=== PATIENT | male | born 1940 | race Caucasian/White ===

== ENCOUNTER 2017-07-07 12:51 | Outpatient (CLI) | payer MEDICARE ==
--- NOTE | 2017-07-07 15:24 | ULT ---
BILATERAL RENAL ULTRASOUND: Date: 07/07/17 HISTORY: Renal cyst. FINDINGS: Comparison made with ultrasound of 11/04/[address] scan of 12/29/15. The right kidney measures 11.1 cm in length and the left kidney measures 11.5 cm in length. There is 3.0 cm cyst in the inferior pole of the right kidney. There is an 8.0 mm exophytic cyst arising fro m the left kidney. A solid-appearing 2.0 cm mass is noted in the left renal cortex, likely correspon ding to the finding on the CT scan of 12/29/15. The urinary bladder is unremarkable. IMPRESSION: 1. Bilateral renal cysts. 2. Solid mass in the left kidney. This should be evaluated with CT scan (with and without IV contra st). POS: [facility]
== END 2017-07-07 12:52 | disposition home or self-care (01) ==
LOC: SCSULT 12:51
PROVIDERS: ATTEND Urology
DX: N28.89 Other specified disorders of kidney and ureter (principal); N28.1 Cyst of kidney, acquired
CPT/HCPCS: 76770

== ENCOUNTER 2017-11-08 08:20 | Outpatient (CLI) | payer MEDICARE ==
[2017-11-08] MEDS ORDERED: Iopamidol 370 76% 100 ML VIAL ONE (09:00)
--- NOTE | 2017-11-08 10:51 | CT ---
CT ABDOMEN AND PELVIS WITH AND WITHOUT IV CONTRAST: HISTORY: Gross hematuria. FINDINGS: Comparison is made with the exam of 12/29/15. Lung bases are unremarkable. The patient is post cholecystectomy. The liver, spleen, pancreas, and adrenal glands are normal. No calculi are seen in the kidneys, ureters, or the urinary bladder. No hydroureteral nephrosis seen . The prostate is enlarged. There is thickening of the wall of the urinary bladder. Post-contrast images demonstrate bilateral renal cysts. 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 The heterogenicity enhancing mass in the posterior aspect of the mid portion of the left kidney is unchanged measuring 2.5 x 1.8 x 2 cm. The small bowel loops are not abnormally dilated. Small duodenal diverticulum is again seen. There is a small hiatal hernia. A normal-appearing appendix is present. There are vascular calcifications without evidence of aneurysmal dilatation of the abdominal aorta. No free air, free fluid, or lymph adenopathy is seen in the abdomen or pelvis. Degenerative changes are present in the spine. IMPRESSION: 1. Stable renal masses. 2. Heterogeneously enhancing mass in the left kidney is stable. The possibility of renal cell carci noma cannot be excluded. 3. Prostatic enlargement with urinary bladder wall thickening. POS: [facility]
== END 2017-11-08 08:21 | disposition home or self-care (01) ==
LOC: SCSCT 08:20
PROVIDERS: ATTEND Urology
DX: R31.0 Gross hematuria (principal); N28.89 Other specified disorders of kidney and ureter; N40.0 Benign prostatic hyperplasia without lower urinary tract symptoms; N32.89 Other specified disorders of bladder
CPT/HCPCS: 74178

== ENCOUNTER 2018-07-30 10:34 | Outpatient (CLI) | payer MEDICARE ==
--- NOTE | 2018-07-30 13:00 | ULT ---
ULTRASOUND BILATERAL RENAL STANDARD: HISTORY: Mass. COMPARISON: CT abdomen and pelvis 11/08/2017. FINDINGS: The right kidney measures 10.9 x 5.9 x 6 cm. The left kidney measures 12 x 5.8 x 6.4 cm. The prosta te is enlarged. The urinary bladder is unremarkable. There is a cyst of the inferior pole right kidney. There is what appears to be intrapolar very homog eneous left-sided renal mass which was not measured by the technologist. The technologist measured i n the superior pole 4.3 cm mass. IMPRESSION: Abnormal left renal mass. An MRI with and without contrast renal protocol recommended. POS: [facility]
== END 2018-07-30 10:35 | disposition home or self-care (01) ==
LOC: SCSULT 10:34
PROVIDERS: ATTEND Urology
DX: N28.89 Other specified disorders of kidney and ureter (principal)
CPT/HCPCS: 76770

== ENCOUNTER 2021-05-23 22:55 | Observation (INO) | payer MEDICARE, OTHER ==
[2021-05-24 02:00] VITALS: BMI 24.0
[2021-05-24] MEDS ORDERED: Morphine 2 MG/ML VIAL SLOW IVP PRN (02:12)
[2021-05-24] MEDS ORDERED: Cyclobenzaprine 10 MG TAB PO PRN (02:12)
[2021-05-24] MEDS ORDERED: Dextrose 5% in Water 1,000 ML IV PRN (02:12)
[2021-05-24] MEDS ORDERED: Dextrose 50% Abboject 50 ML SYRINGE SLOW IVP PRN (02:12)
[2021-05-24] MEDS ORDERED: Ondansetron ODT 4 MG TAB PO PRN (02:12)
[2021-05-24] MEDS ORDERED: hydrALAZINE 20 MG/ML VIAL SLOW IVP PRN (02:12)
[2021-05-24] MEDS ORDERED: Ondansetron PF 4 MG/2 ML Vial IVP PRN (02:12)
[2021-05-24] MEDS ORDERED: HumaLOG 300 UNITS/3 ML VIAL SC PRN ×2 (02:12)
[2021-05-24] MEDS ORDERED: traMADol HCl 50 MG TAB PO PRN ×2 (02:12)
[2021-05-24] MEDS: Sodium Chloride 0.9% 1,000 ML IV SCH ×4 (02:36→21:48)
[2021-05-24] MEDS: Acetaminophen 500 MG TAB PO SCH ×3 (04:39→18:19)
[2021-05-24 05:53] LABS: #Lymphocytes 1.4 thou/uL (1.20-3.40); #Monocytes 0.6 thou/uL (0.11-0.59); #Neutrophils 7.3 thou/uL (1.40-6.50); %Eosinophils 0.3 % (0.0-10.0); %Monocytes 6.1 % (0.0-10.0); %Neutrophils 78.6 % (42.0-75.0); Hemoglobin 12.2 g/dL (14.0-18.0); Mean Corpuscular HGB CONC 33.2 g/dL (32.0-36.0); Mean Corpuscular Volume 96.4 fL (78.0-98.0); Mean Platelet Volume 8.1 fL (7.4-10.4); Platelet Count 136 thou/uL (130-400); RBC Distribution Width 13.3 % (11.5-14.5); Red Blood Cell (RBC) Count 3.82 mill/uL (4.70-6.10); White Blood Cell (WBC) Count 9.3 thou/uL (4.8-10.8)
[2021-05-24 06:19] LABS: Anion Gap 18 mmol/L (10-20); BUN (Urea Nitrogen) 26 mg/dL (8.4-25.7); Calc. Creatinine Clearance 45 mL/min (70-130); Calcium 8.9 mg/dL (7.8-10.44); Carbon Dioxide 22 mmol/L (23-31); Chloride 103 mmol/L (98-107); Glucose 127 mg/dL (83-110); Potassium 5.7 mmol/L (3.5-5.1); Sodium 137 mmol/L (136-145)
[2021-05-24] MEDS ORDERED: Gabapentin 100 MG CAP PO SCH (09:00)
[2021-05-24] MEDS ORDERED: Lisinopril 10 MG TAB PO SCH (09:00)
[2021-05-24] MEDS: Dutasteride 0.5 MG CAP PO SCH (10:10)
[2021-05-24] MEDS: metFORMIN 500 MG TAB PO SCH ×2 (10:12→18:18)
[2021-05-24] MEDS: Empagliflozin 25 MG TAB PO SCH (10:12)
[2021-05-24] MEDS: Famotidine 20 MG TAB PO SCH (10:12)
[2021-05-24] MEDS: Cholecalciferol 1,000 UNITS (25 MCG) TAB PO SCH (10:12)
[2021-05-24] MEDS: Tamsulosin HCl 0.4 MG CAP PO SCH (10:17)
[2021-05-24 12:23] LABS: Anion Gap 17 mmol/L (10-20); BUN (Urea Nitrogen) 28 mg/dL (8.4-25.7); Calc. Creatinine Clearance 42 mL/min (70-130); Calcium 8.5 mg/dL (7.8-10.44); Carbon Dioxide 20 mmol/L (23-31); Chloride 103 mmol/L (98-107); Glucose 216 mg/dL (83-110); Magnesium 2.2 mg/dL (1.6-2.6); Phosphorus 4.9 mg/dL (2.3-4.7); Potassium 5.5 mmol/L (3.5-5.1); Sodium 134 mmol/L (136-145)
[2021-05-24] MEDS: traMADol HCl 50 MG TAB PO SCH ×2 (12:45→21:51)
[2021-05-24] MEDS ORDERED: Dextrose 50% Abboject 50 ML SYRINGE SLOW IVP SCH (12:45)
[2021-05-24] MEDS ORDERED: Insulin Regular 300 UNITS/3 ML VIAL IVP SCH (12:45)
[2021-05-24 17:34] LABS: SARS-CoV-2 PCR by NAA Not Detected (NotDetected)
[2021-05-24 18:12] LABS: Anion Gap 10 mmol/L (10-20); BUN (Urea Nitrogen) 29 mg/dL (8.4-25.7); Calc. Creatinine Clearance 43 mL/min (70-130); Calcium 8.1 mg/dL (7.8-10.44); Carbon Dioxide 24 mmol/L (23-31); Chloride 105 mmol/L (98-107); Glucose 137 mg/dL (83-110); Potassium 4.8 mmol/L (3.5-5.1); Sodium 134 mmol/L (136-145)
[2021-05-24] MEDS ORDERED: Atorvastatin Calcium 20 MG TAB PO SCH (21:00)
[2021-05-24] MEDS ORDERED: Melatonin 3 MG TAB PO SCH (21:00)
[2021-05-24] MEDS ORDERED: Sodium Chloride 0.9% 1,000 ML IV SCH (21:44)
[2021-05-24] MEDS: Pregabalin 50 MG CAP PO SCH (21:52)
[2021-05-25] MEDS: Acetaminophen 500 MG TAB PO SCH ×3 (00:22→12:13)
[2021-05-25] MEDS: traMADol HCl 50 MG TAB PO SCH (05:48)
[2021-05-25 06:54] LABS: Anion Gap 11 mmol/L (10-20); BUN (Urea Nitrogen) 28 mg/dL (8.4-25.7); CK (CPK) 285 U/L (30-200); Calc. Creatinine Clearance 46 mL/min (70-130); Calcium 8.2 mg/dL (7.8-10.44); Carbon Dioxide 22 mmol/L (23-31); Chloride 106 mmol/L (98-107); Glucose 122 mg/dL (83-110); Magnesium 2.1 mg/dL (1.6-2.6); Phosphorus 3.4 mg/dL (2.3-4.7); Potassium 4.3 mmol/L (3.5-5.1); Sodium 135 mmol/L (136-145)
[2021-05-25 09:15] LABS: #Eosinphils 0.3 thou/uL (0.0-0.7); #Lymphocytes 2.1 thou/uL (1.20-3.40); #Monocytes 1.1 thou/uL (0.11-0.59); #Neutrophils 3.9 thou/uL (1.40-6.50); %Basophils 0.2 % (0.0-1.0); %Eosinophils 3.6 % (0.0-10.0); %Lymphocytes 28.4 % (21.0-51.0); %Monocytes 14.4 % (0.0-10.0); %Neutrophils 53.4 % (42.0-75.0); Hemoglobin 11.2 g/dL (14.0-18.0); Mean Corpuscular HGB CONC 32.7 g/dL (32.0-36.0); Mean Corpuscular Hemoglobin 31.8 pg (27.0-31.0); Mean Corpuscular Volume 97.1 fL (78.0-98.0); Mean Platelet Volume 7.5 fL (7.4-10.4); Platelet Count 127 thou/uL (130-400); RBC Distribution Width 13.8 % (11.5-14.5); Red Blood Cell (RBC) Count 3.52 mill/uL (4.70-6.10); White Blood Cell (WBC) Count 7.3 thou/uL (4.8-10.8)
[2021-05-25] MEDS: Empagliflozin 25 MG TAB PO SCH (09:32)
[2021-05-25] MEDS: Cholecalciferol 1,000 UNITS (25 MCG) TAB PO SCH (09:33)
[2021-05-25] MEDS: Famotidine 20 MG TAB PO SCH (09:33)
[2021-05-25] MEDS: Tamsulosin HCl 0.4 MG CAP PO SCH (09:33)
[2021-05-25] MEDS: metFORMIN 500 MG TAB PO SCH (09:33)
[2021-05-25] MEDS: Pregabalin 50 MG CAP PO SCH (09:34)
[2021-05-25] MEDS: Dutasteride 0.5 MG CAP PO SCH (09:40)
[2021-05-25 11:32] VITALS: TEMP 97.6
[2021-05-25] MEDS ORDERED: Bisacodyl 10 MG SUPP PR SCH (12:00)
[2021-05-25 17:31] VITALS: BP 130/77
== END 2021-05-25 18:20 | disposition home health service (06) ==
LOC: SURG A 22:55
PROVIDERS: ADMIT Specialist; ATTEND Specialist
DX: S12.090A Other displaced fracture of first cervical vertebra, initial encounter for closed fracture (principal); S22.31XA Fracture of one rib, right side, initial encounter for closed fracture; S43.101A Unspecified dislocation of right acromioclavicular joint, initial encounter; I13.10 Hypertensive heart and chronic kidney disease without heart failure, with stage 1 through stage 4 chronic kidney disease, or unspecified chronic kidney disease; E11.22 Type 2 diabetes mellitus with diabetic chronic kidney disease; N18.9 Chronic kidney disease, unspecified; N17.9 Acute kidney failure, unspecified; N28.89 Other specified disorders of kidney and ureter; G89.11 Acute pain due to trauma; S01.01XA Laceration without foreign body of scalp, initial encounter; E78.00 Pure hypercholesterolemia, unspecified; N40.0 Benign prostatic hyperplasia without lower urinary tract symptoms; Z87.891 Personal history of nicotine dependence; Z79.01 Long term (current) use of anticoagulants; Z79.84 Long term (current) use of oral hypoglycemic drugs; Z79.899 Other long term (current) drug therapy; Z95.1 Presence of aortocoronary bypass graft; Z95.5 Presence of coronary angioplasty implant and graft; Z95.810 Presence of automatic (implantable) cardiac defibrillator; Z20.822 Contact with and (suspected) exposure to COVID-19; V84.0XXA Driver of special agricultural vehicle injured in traffic accident, initial encounter; Y92.410 Unspecified street and highway as the place of occurrence of the external cause
CPT/HCPCS: 71045; 73030; 80048 ×3; 82550 ×2; 82962 ×2; 83735 ×2; 84100 ×2; 85025 ×2; 97116; 97139 ×4; U0003; U0005; 36415; 36416; 96374; G0378; J1815; J7050

== ENCOUNTER 2021-06-08 09:44 | Outpatient (CLI) | payer MEDICARE | END 2021-06-08 09:45 | disposition home or self-care (01) | LOC: TBSIIMAG 09:44 | PROVIDERS: ATTEND Neurological Surgery | DX: S12.000D Unspecified displaced fracture of first cervical vertebra, subsequent encounter for fracture with routine healing (principal); M47.812 Spondylosis without myelopathy or radiculopathy, cervical region | CPT/HCPCS: 72040 ==

== ENCOUNTER 2022-09-01 06:46 | Emergency (ER) | payer MEDICARE ==
[2022-09-01] MEDS ORDERED: Ibuprofen 200 MG TAB ONE (07:17)
[2022-09-01] MEDS ORDERED: Cyclobenzaprine 10 MG TAB ONE (07:17)
== END 2022-09-01 08:06 | disposition home or self-care (01) ==
LOC: ERS 06:46
DX: S29.012A Strain of muscle and tendon of back wall of thorax, initial encounter (principal); J18.9 Pneumonia, unspecified organism; I10 Essential (primary) hypertension; E78.00 Pure hypercholesterolemia, unspecified; E11.9 Type 2 diabetes mellitus without complications; Z79.84 Long term (current) use of oral hypoglycemic drugs; Z79.899 Other long term (current) drug therapy; Z79.01 Long term (current) use of anticoagulants; Z87.891 Personal history of nicotine dependence; X58.XXXA Exposure to other specified factors, initial encounter
CPT/HCPCS: 71045

== ENCOUNTER 2022-09-11 11:05 | Inpatient (IN) | payer MEDICARE ==
[2022-09-11] MEDS ORDERED: Magnesium 2 GM/50 ML BAG (IN WATER) ONE (11:32)
[2022-09-11] MEDS ORDERED: Digoxin 0.5 MG/2 ML AMP ONE (11:32)
[2022-09-11] MEDS ORDERED: Diltiazem 125 MG in Sodium Chloride 0.9% 100 ML IVPB SCH (13:00)
[2022-09-11] MEDS ORDERED: Diltiazem 125 MG/25 ML ONE ×2 (13:20→13:59)
[2022-09-11 14:20] LABS: Bilirubin Negative (Negative); Blood, Urine 2+ (Negative); Clarity Clear (Clear); Glucose, Urine (Dipstick) Greater than 1000 mg/dL (Negative); Ketone, Urine Negative (Negative); Leukocyte Negative Leu/uL (Negative); Nitrite Negative (Negative); Protein, Urine (Dipstick) Negative (Neg-Trace); RBC/HPF 0-3 HPF (0-3); Specific Gravity, Urine 1.013 (1.002-1.036); Squamous Epithelial 0-3 HPF (0-3); Urobilinogen Normal mg/dL (Less than 2)
[2022-09-11 14:22] LABS: Bacteria/HPF 1+ HPF (None Seen)
[2022-09-11 15:30] LABS: SARS-CoV-2 NAA Rapid Test Not Detected (NotDetected)
[2022-09-11 15:32] VITALS: BMI 23.1
[2022-09-11 15:40] LABS: Troponin I 0.025 ng/mL (< 0.028)
[2022-09-11 19:36] LABS: Actual Bicarbonate (HCO3a) 19.1 mEq/L (22-28); Base Excess (BEa) -7.3 mEq/L (-2.0 to +3.0); CO2 Tension 41.8 mmHg (35.0-45.0); Carboxyhemoglobin (COHb) 0.5 gm% (0.0-3.0); Hemoglobin (Hb) 11.1 g/dL (14.0-18.0); O2 Tension (PaO2), arterial 61.1 mmHg (> 60.0); pH, Arterial 7.28 (7.35-7.45)
[2022-09-11 19:38] LABS: Potassium - ABG Lab 6.01 mmol/L (3.70-5.30); Puncture Site R RAD
[2022-09-11] MEDS ORDERED: Magnesium 5 GM/10 ML Abboject SYRINGE ONE (20:05)
[2022-09-11] MEDS ORDERED: Lactated Ringer's 1,000 ML IV SCH (20:30)
[2022-09-11] MEDS ORDERED: hydrOXYzine 25 MG TAB PO SCH (20:45)
[2022-09-11 22:32] LABS: Troponin I 0.045 ng/mL (< 0.028)
[2022-09-11] MEDS: Rosuvastatin 20 MG TAB PO SCH (22:44)
[2022-09-11] MEDS: Carvedilol 6.25 MG TAB PO SCH (22:44)
[2022-09-11] MEDS: metFORMIN 500 MG TAB PO SCH (22:45)
[2022-09-11 22:55] LABS: ALT (SGPT) 109 U/L (8-55); AST (SGOT) 107 U/L (5-34); Albumin 3.1 g/dL (3.4-4.8); Alkaline Phosphatase 86 U/L (40-110); Anion Gap 17 mmol/L (10-20); BUN (Urea Nitrogen) 33 mg/dL (8.4-25.7); Bilirubin, Total 0.6 mg/dL (0.2-1.2); Calc. Creatinine Clearance 32 mL/min (70-130); Calcium 9.5 mg/dL (7.8-10.44); Carbon Dioxide 21 mmol/L (23-31); Chloride 97 mmol/L (98-107); Estimated GFR 37; Globulin 3.3 g/dL (2.4-3.5); Glucose 200 mg/dL (83-110); Protein, Total 6.4 g/dL (5.8-8.1); Sodium 129 mmol/L (136-145)
[2022-09-11] MEDS ORDERED: Levalbuterol HCl 0.63 MG/3 ML NEB NEB SCH (23:00)
[2022-09-11 23:01] LABS: Potassium 6.3 mmol/L (3.5-5.1)
[2022-09-11] MEDS: Sodium Chloride 0.9% 1,000 ML IV SCH (23:22)
[2022-09-12] MEDS ORDERED: Sodium Chloride 0.9% 500 ML IV SCH (00:15)
[2022-09-12] MEDS ORDERED: NOREPINEPHRINE 8 MG/250 ML-D5W 250 ML IVPB SCH ×2 (00:45→06:30)
[2022-09-12] MEDS ORDERED: Calcium Gluc 4.6 MEQ/10 ML (100 MG/ML) SLOW IVP SCH (01:37)
[2022-09-12] MEDS: Levalbuterol HCl 0.63 MG/3 ML NEB NEB SCH ×6 (02:19→22:00)
[2022-09-12] MEDS ORDERED: Dexamethasone 4 mg/ml Vial SLOW IVP SCH (02:30)
[2022-09-12 02:33] LABS: #Eosinphils 0.1 thou/uL (0.0-0.7); #Lymphocytes 0.6 thou/uL (1.20-3.40); #Neutrophils 11.1 thou/uL (1.40-6.50); %Eosinophils 0.9 % (0.0-10.0); %Lymphocytes 4.7 % (21.0-51.0); %Monocytes 7.7 % (0.0-10.0); %Neutrophils 86.7 % (42.0-75.0); Hemoglobin 8.8 g/dL (14.0-18.0); Mean Corpuscular Volume 93.7 fl (78.0-98.0); Mean Platelet Volume 6.2 fL (7.4-10.4); Platelet Count 211 10x3/uL (130-400); RBC Distribution Width 15.2 % (11.5-14.5); Red Blood Cell (RBC) Count 2.94 mill/uL (4.70-6.10); White Blood Cell (WBC) Count 12.8 10x3/uL (4.8-10.8)
[2022-09-12 02:57] LABS: Troponin I 0.113 ng/mL (< 0.028)
[2022-09-12 03:16] LABS: ALT (SGPT) 92 U/L (8-55); AST (SGOT) 86 U/L (5-34); Albumin 2.6 g/dL (3.4-4.8); Alkaline Phosphatase 78 U/L (40-110); Anion Gap 17 mmol/L (10-20); BUN (Urea Nitrogen) 34 mg/dL (8.4-25.7); Bilirubin, Total 0.6 mg/dL (0.2-1.2); Calc. Creatinine Clearance 33 mL/min (70-130); Calcium 9.3 mg/dL (7.8-10.44); Carbon Dioxide 17 mmol/L (23-31); Chloride 100 mmol/L (98-107); Estimated GFR 38; Globulin 2.8 g/dL (2.4-3.5); Glucose 156 mg/dL (83-110); Potassium 5.8 mmol/L (3.5-5.1); Protein, Total 5.4 g/dL (5.8-8.1); Sodium 128 mmol/L (136-145)
[2022-09-12] MEDS ORDERED: Sodium Chloride 0.9% 1,000 ML IV SCH ×2 (03:30→06:30)
[2022-09-12] MEDS ORDERED: cefTRIAXone\\ROCEPHIN 1 GM in Sodium Chloride 0.9% 100 ML IVPB SCH ×2 (05:30→11:00)
[2022-09-12] MEDS: Sodium Chloride 0.9% 1,000 ML IV SCH ×2 (05:32→10:33)
[2022-09-12] MEDS: Azithromycin 500 MG in Sodium Chloride 0.9% 250 ML 250 ML IVPB SCH (05:37)
[2022-09-12] MEDS ORDERED: cefTRIAXone\\ROCEPHIN 2 GM in Sodium Chloride 0.9% 100 ML IVPB SCH (08:00)
[2022-09-12] MEDS ORDERED: Sodium Bicarb 50 MEQ/50 ML VIAL IVP SCH (09:00)
[2022-09-12] MEDS ORDERED: Enoxaparin Sodium 40 MG/0.4 ML SYRINGE SC SCH (09:00)
[2022-09-12] MEDS: Carvedilol 6.25 MG TAB PO SCH ×2 (10:03→21:21)
[2022-09-12] MEDS: metFORMIN 500 MG TAB PO SCH ×2 (10:03→21:21)
[2022-09-12] MEDS: Dexamethasone 4 mg/ml Vial SLOW IVP SCH (10:03)
[2022-09-12] MEDS: Tamsulosin HCl 0.4 MG CAP PO SCH (10:03)
[2022-09-12] MEDS: Dutasteride 0.5 MG CAP PO SCH (10:03)
[2022-09-12] MEDS: Empagliflozin 25 MG TAB PO SCH (11:17)
[2022-09-12 18:13] LABS: Anion Gap 17 mmol/L (10-20); BUN (Urea Nitrogen) 34 mg/dL (8.4-25.7); Calc. Creatinine Clearance 38 mL/min (70-130); Calcium 8.8 mg/dL (7.8-10.44); Carbon Dioxide 15 mmol/L (23-31); Chloride 102 mmol/L (98-107); Estimated GFR 44; Glucose 162 mg/dL (83-110); Potassium 5.4 mmol/L (3.5-5.1); Sodium 129 mmol/L (136-145)
[2022-09-12] MEDS: Rosuvastatin 20 MG TAB PO SCH (21:21)
[2022-09-13] MEDS: Levalbuterol HCl 0.63 MG/3 ML NEB NEB SCH ×6 (02:10→22:01)
[2022-09-13] MEDS: Sodium Chloride 0.9% 1,000 ML IV SCH (02:16)
[2022-09-13 03:11] LABS: #Basophils 0.1 thou/uL (0.0-0.2); #Eosinphils 0.1 thou/uL (0.0-0.7); #Lymphocytes 0.6 thou/uL (1.20-3.40); #Monocytes 1.3 thou/uL (0.11-0.59); #Neutrophils 12.7 thou/uL (1.40-6.50); %Basophils 0.4 % (0.0-1.0); %Eosinophils 0.6 % (0.0-10.0); %Lymphocytes 4.2 % (21.0-51.0); %Monocytes 8.6 % (0.0-10.0); %Neutrophils 86.2 % (42.0-75.0); Hemoglobin 8.5 g/dL (14.0-18.0); Mean Corpuscular HGB CONC 30.6 g/dL (32.0-36.0); Mean Corpuscular Hemoglobin 29.4 pg (27.0-31.0); Mean Corpuscular Volume 96.3 fl (78.0-98.0); Mean Platelet Volume 6.3 fL (7.4-10.4); Platelet Count 247 10x3/uL (130-400); RBC Distribution Width 15.4 % (11.5-14.5); Red Blood Cell (RBC) Count 2.88 mill/uL (4.70-6.10); White Blood Cell (WBC) Count 14.7 10x3/uL (4.8-10.8)
[2022-09-13 03:32] LABS: ALT (SGPT) 72 U/L (8-55); AST (SGOT) 69 U/L (5-34); Albumin 2.6 g/dL (3.4-4.8); Alkaline Phosphatase 77 U/L (40-110); Anion Gap 17 mmol/L (10-20); BUN (Urea Nitrogen) 36 mg/dL (8.4-25.7); Bilirubin, Total 0.3 mg/dL (0.2-1.2); Calc. Creatinine Clearance 39 mL/min (70-130); Calcium 8.3 mg/dL (7.8-10.44); Carbon Dioxide 15 mmol/L (23-31); Chloride 104 mmol/L (98-107); Estimated GFR 46; Globulin 2.5 g/dL (2.4-3.5); Glucose 182 mg/dL (83-110); Potassium 4.9 mmol/L (3.5-5.1); Protein, Total 5.1 g/dL (5.8-8.1); Sodium 131 mmol/L (136-145)
[2022-09-13] MEDS: cefTRIAXone\\ROCEPHIN 2 GM in Sodium Chloride 0.9% 100 ML IVPB SCH (05:21)
[2022-09-13] MEDS: Azithromycin 500 MG in Sodium Chloride 0.9% 250 ML 250 ML IVPB SCH (05:24)
[2022-09-13] MEDS ORDERED: hydrOXYzine 25 MG TAB PO PRN (08:51)
[2022-09-13] MEDS: Carvedilol 6.25 MG TAB PO SCH ×2 (09:22→21:50)
[2022-09-13] MEDS: Tamsulosin HCl 0.4 MG CAP PO SCH (09:22)
[2022-09-13] MEDS: Dutasteride 0.5 MG CAP PO SCH (09:22)
[2022-09-13] MEDS: metFORMIN 500 MG TAB PO SCH ×2 (09:22→21:51)
[2022-09-13] MEDS: Empagliflozin 25 MG TAB PO SCH (09:22)
[2022-09-13] MEDS: Dexamethasone 4 mg/ml Vial SLOW IVP SCH (09:23)
[2022-09-13] MEDS ORDERED: Furosemide 20 MG/2 ML VIAL SLOW IVP SCH (10:15)
[2022-09-13] MEDS ORDERED: Digoxin 0.5 MG/2 ML AMP SLOW IVP SCH (10:30)
[2022-09-13] MEDS ORDERED: Ferumoxytol (NON ERSD) 510 MG in Sodium Chloride 0.9% 250 ML 150 ML IVPB SCH (12:00)
[2022-09-13] MEDS ORDERED: Lorazepam 2 MG/ML VIAL SLOW IVP PRN (12:03)
[2022-09-13] MEDS ORDERED: Lorazepam 2 MG/ML VIAL SLOW IVP SCH (12:15)
[2022-09-13] MEDS: Sodium Bicarbonate 140 MEQ in Dextrose 5% in Water 1,000 ML IV SCH (12:15)
[2022-09-13] MEDS: Rosuvastatin 20 MG TAB PO SCH (21:50)
[2022-09-14] MEDS: Lorazepam 1 MG TAB PO PRN ×2 (00:01→13:00)
[2022-09-14] MEDS: Levalbuterol HCl 0.63 MG/3 ML NEB NEB SCH ×6 (02:16→23:04)
[2022-09-14 04:01] LABS: Band 13 % (5-11); Hypochromia SLIGHT = 6-15 cells (100X) (0-5/hpf); Lymphocytes 11 % (21-51); MDiff Complete? YES; Mean Corpuscular HGB CONC 33.3 g/dL (32.0-36.0); Mean Corpuscular Hemoglobin 32.4 pg (27.0-31.0); Mean Corpuscular Volume 97.3 fl (78.0-98.0); Mean Platelet Volume 6.5 fL (7.4-10.4); Monocytes 9 % (0-10); Neutrophil 67 % (42-75); Platelet Count 260 10x3/uL (130-400); Platelet Morphology Comment Appears Adequate; RBC Distribution Width 16.1 % (11.5-14.5); Red Blood Cell (RBC) Count 3.07 mill/uL (4.70-6.10)
[2022-09-14 04:02] LABS: ALT (SGPT) 68 U/L (8-55); AST (SGOT) 60 U/L (5-34); Albumin 2.8 g/dL (3.4-4.8); Alkaline Phosphatase 82 U/L (40-110); Anion Gap 19 mmol/L (10-20); BUN (Urea Nitrogen) 43 mg/dL (8.4-25.7); Bilirubin, Total 0.3 mg/dL (0.2-1.2); Calc. Creatinine Clearance 38 mL/min (70-130); Calcium 8.7 mg/dL (7.8-10.44); Carbon Dioxide 17 mmol/L (23-31); Chloride 101 mmol/L (98-107); Estimated GFR 41; Globulin 2.8 g/dL (2.4-3.5); Glucose 180 mg/dL (83-110); Potassium 5.1 mmol/L (3.5-5.1); Protein, Total 5.6 g/dL (5.8-8.1); Sodium 132 mmol/L (136-145)
[2022-09-14] MEDS: cefTRIAXone\\ROCEPHIN 2 GM in Sodium Chloride 0.9% 100 ML IVPB SCH (06:30)
[2022-09-14] MEDS: Sodium Bicarbonate 140 MEQ in Dextrose 5% in Water 1,000 ML IV SCH (06:37)
[2022-09-14] MEDS: Azithromycin 500 MG in Sodium Chloride 0.9% 250 ML 250 ML IVPB SCH (06:53)
[2022-09-14] MEDS ORDERED: Dextrose 5% in Water 1,000 ML IV PRN (08:28)
[2022-09-14] MEDS ORDERED: HumaLOG 300 UNITS/3 ML VIAL SC PRN (08:28)
[2022-09-14] MEDS ORDERED: Dextrose 50% Abboject 50 ML SYRINGE SLOW IVP PRN (08:28)
[2022-09-14] MEDS: Empagliflozin 25 MG TAB PO SCH (09:06)
[2022-09-14] MEDS: Tamsulosin HCl 0.4 MG CAP PO SCH (09:06)
[2022-09-14] MEDS: Carvedilol 6.25 MG TAB PO SCH ×2 (09:06→21:20)
[2022-09-14] MEDS: metFORMIN 500 MG TAB PO SCH ×2 (09:06→21:21)
[2022-09-14] MEDS: Dutasteride 0.5 MG CAP PO SCH (09:06)
[2022-09-14 16:20] VITALS: TEMP 97.5
[2022-09-14] MEDS ORDERED: Morphine 4 MG/ML VIAL ONE (18:17)
[2022-09-14] MEDS ORDERED: Morphine 4 MG/ML VIAL SLOW IVP PRN (18:38)
[2022-09-14 21:21] VITALS: BP 115/60
[2022-09-14] MEDS: Rosuvastatin 20 MG TAB PO SCH (21:21)
== END 2022-09-14 23:50 | disposition expired | DRG 871 ==
LOC: ERS 11:05 → ERHOLD 11:57 → 2NO 15:45 → IMCU/EMU 23:15
PROVIDERS: ADMIT Emergency Medicine; ATTEND Family Medicine
PROC: 5A09357 Assistance with Respiratory Ventilation, Less than 24 Consecutive Hours, Continuous Positive Airway Pressure (ICD-10-PCS; principal; 2022-09-11)
PROC: 3E03329 Introduction of Other Anti-infective into Peripheral Vein, Percutaneous Approach (ICD-10-PCS; 2022-09-11)
PROC: 5A0935A Assistance with Respiratory Ventilation, Less than 24 Consecutive Hours, High Flow/Velocity Cannula (ICD-10-PCS; 2022-09-13)
DX: A41.9 Sepsis, unspecified organism (principal); J18.9 Pneumonia, unspecified organism; J96.21 Acute and chronic respiratory failure with hypoxia; J96.01 Acute respiratory failure with hypoxia; N17.9 Acute kidney failure, unspecified; E87.20 Acidosis, unspecified; I48.20 Chronic atrial fibrillation, unspecified; C64.2 Malignant neoplasm of left kidney, except renal pelvis; C78.00 Secondary malignant neoplasm of unspecified lung; C79.89 Secondary malignant neoplasm of other specified sites; I13.0 Hypertensive heart and chronic kidney disease with heart failure and stage 1 through stage 4 chronic kidney disease, or unspecified chronic kidney disease; I50.22 Chronic systolic (congestive) heart failure; E22.2 Syndrome of inappropriate secretion of antidiuretic hormone; R65.20 Severe sepsis without septic shock; Z66 Do not resuscitate; Z51.5 Encounter for palliative care; Z20.822 Contact with and (suspected) exposure to COVID-19; I25.10 Atherosclerotic heart disease of native coronary artery without angina pectoris; E78.5 Hyperlipidemia, unspecified; N40.0 Benign prostatic hyperplasia without lower urinary tract symptoms; R49.22 Hyponasality; N18.9 Chronic kidney disease, unspecified; D63.1 Anemia in chronic kidney disease; R79.89 Other specified abnormal findings of blood chemistry; E11.22 Type 2 diabetes mellitus with diabetic chronic kidney disease; E87.5 Hyperkalemia; R74.01 Elevation of levels of liver transaminase levels; F41.9 Anxiety disorder, unspecified; I25.5 Ischemic cardiomyopathy; R31.9 Hematuria, unspecified; S31.000A Unspecified open wound of lower back and pelvis without penetration into retroperitoneum, initial encounter; Z79.899 Other long term (current) drug therapy; Z79.84 Long term (current) use of oral hypoglycemic drugs; Z79.02 Long term (current) use of antithrombotics/antiplatelets; Z85.528 Personal history of other malignant neoplasm of kidney; Z95.1 Presence of aortocoronary bypass graft; Z95.810 Presence of automatic (implantable) cardiac defibrillator; Z80.0 Family history of malignant neoplasm of digestive organs; Z82.49 Family history of ischemic heart disease and other diseases of the circulatory system; Z87.891 Personal history of nicotine dependence
CPT/HCPCS: 36415; 36416; 71045; 80053; 81001; 82533; 82570; 82805; 83880; 83930; 83935; 84145; 84300; 84443; 84484; 85025; 87040; 93005; 93010; 93306; 93970; 94640; 94660; 96365; 96375; 97139; J0456; J0610; J0696; J1100; J1160; J1940; J2060; J2270; J3475; J3490; J7030; J7050; J7070; J7120; J7614; J7620